=== PATIENT | male | born 1955 | race Two or more races ===

== ENCOUNTER → 2018-08-01 17:38 | Outpatient (CLI) | payer OTHER ==
[~2018-08-01 17:38] MED LIST: PROSCAR5 MG; TAMS0.4C
== END | disposition home or self-care (01) ==
LOC: LAB 17:38
DX: R97.20 Elevated prostate specific antigen [PSA] (principal)

== ENCOUNTER 2018-08-02 19:25 | Emergency (ER) | payer OTHER ==
[~2018-08-02] VITALS: Ht 188 cm; Wt 88.5 kg
[2018-08-02] MEDS ORDERED: TAMS0.4C (19:40)
[2018-08-02] MEDS ORDERED: PROSCAR5 MG (19:40)
== END 2018-08-03 00:39 | disposition home or self-care (01) ==
LOC: ER 19:25
DX: B34.9 Viral infection, unspecified (principal); N40.0 Benign prostatic hyperplasia without lower urinary tract symptoms; R30.0 Dysuria; N39.0 Urinary tract infection, site not specified

== ENCOUNTER 2018-08-08 06:17 | Emergency (ER) | payer OTHER ==
[~2018-08-08] VITALS: Ht 188 cm; Wt 88.5 kg
== END 2018-08-08 10:07 | disposition home or self-care (01) ==
LOC: ER 06:17
DX: N13.8 Other obstructive and reflux uropathy (principal)

== ENCOUNTER 2018-08-30 07:10 | Outpatient (CLI) | payer OTHER | END 2018-08-30 07:20 | disposition home or self-care (01) | LOC: SONOGRAMA 07:10 | DX: R97.20 Elevated prostate specific antigen [PSA] (principal) ==

== ENCOUNTER 2018-09-13 08:30 | Inpatient (IN) | payer OTHER ==
[~2018-09-13] VITALS: Ht 188 cm; Wt 92.5 kg
== END 2018-09-23 14:06 | disposition home or self-care (01) | DRG 707 ==
LOC: SURH 09-18 07:59 → SURG 09-18 09:08 → O/R 09-18 09:08 → SURG 09-18 16:00
PROVIDERS: ADMIT Urology
PROC: 0VT00ZZ Resection of Prostate, Open Approach (ICD-10-PCS; principal; 2018-09-18 15:00)
DX: N40.0 Benign prostatic hyperplasia without lower urinary tract symptoms (principal); N13.8 Other obstructive and reflux uropathy; N39.0 Urinary tract infection, site not specified; N41.0 Acute prostatitis; R33.8 Other retention of urine

== ENCOUNTER 2018-09-28 08:10 | Emergency (ER) | payer OTHER ==
[~2018-09-28] VITALS: Ht 188 cm; Wt 90.7 kg
[2018-09-28] MEDS ORDERED: AMOXICILLIN500 M1 (08:21)
== END 2018-09-28 15:12 | disposition home or self-care (01) ==
LOC: ER 08:10
DX: N13.39 Other hydronephrosis (principal); R10.31 Right lower quadrant pain

== ENCOUNTER 2018-10-02 09:37 | Outpatient (CLI) | payer OTHER ==
[~2018-10-02 09:37] MED LIST changes: +AMOXICILLIN500 M1
== END 2018-10-02 15:00 | disposition home or self-care (01) ==
LOC: LAB 09:37
DX: R31.29 Other microscopic hematuria (principal)

== ENCOUNTER 2018-10-16 06:37 | Outpatient (CLI) | payer OTHER | END 2018-10-16 09:09 | disposition home or self-care (01) | LOC: LAB 06:37 | DX: R97.20 Elevated prostate specific antigen [PSA] (principal); R31.9 Hematuria, unspecified ==

== ENCOUNTER 2018-10-16 09:16 | Outpatient (CLI) | payer OTHER | END 2018-10-16 09:23 | disposition home or self-care (01) | LOC: SONOGRAMA 09:16 | DX: R97.20 Elevated prostate specific antigen [PSA] (principal); R31.9 Hematuria, unspecified ==

== ENCOUNTER 2019-01-22 07:02 | Outpatient (CLI) | payer OTHER | END 2019-01-22 07:31 | disposition home or self-care (01) | LOC: LAB 07:02 | DX: R97.20 Elevated prostate specific antigen [PSA] (principal); N30.00 Acute cystitis without hematuria; K31.1 Adult hypertrophic pyloric stenosis ==

== ENCOUNTER → 2019-01-22 | Outpatient (CLI) | payer OTHER | END | disposition home or self-care (01) | LOC: MAMO-SONO 09:45 → SONOGRAMA 10:31 | DX: R97.20 Elevated prostate specific antigen [PSA] (principal) ==